=== PATIENT | female | born 1950 | race Caucasian/White ===

== ENCOUNTER 2016-06-26 10:43 | Observation (INO) | payer OTHER, MEDICAID ==
--- NOTE | 2016-06-26 10:58 | EDPHY ---
H & P Time Seen by Provider: 06/26/16 10:46 HPI/ROS: CHIEF COMPLAINT: HYPOXIA HISTORY OF PRESENT ILLNESS: Patient is a 65-year-old female who is sent to the emergency department for being hypoxic after ECT therapy. She has seen there for history of bipolar disorder. She had ECT today and received etomidate and succinylcholine for the procedure. During recovery she was remaining hypoxic around 80% on room air. This had never happened to her before. Dr. Elkins called to transfer her. He did tell me that she had a history of mild heart failure. Patient denies this and it is not listed on her records however she does take 20 mg of Lasix daily and wear compression stockings. She has not been febrile. She denies recent illness. She denies any dyspnea prior to this morning's treatment. She denies having any history of cardiac or pulmonary disease. REVIEW OF SYSTEMS: Constitutional: denies: chills, fever, recent illness, recent injury EENTM: denies: blurred vision, double vision, nose congestion Respiratory: See HPI Cardiac: denies: chest pain, irregular heart rate, lightheadedness, palpitations Gastrointestinal/Abdominal: denies: abdominal pain, diarrhea, nausea, vomiting, blood streaked stools Genitourinary: denies: dysuria, frequency, hematuria, pain Musculoskeletal: denies: joint pain, muscle pain Skin: denies: lesions, rash, jaundice, bruising Neurological: denies: headache, numbness, paresthesia, tingling, dizziness, weakness Hematologic/Lymphatic: denies: blood clots, easy bleeding, easy bruising Immunologic/allergic: denies: HIV/AIDS, transplant EXAM: GENERAL: Well-appearing, well-nourished and in no acute distress. HEAD: Atraumatic, normocephalic. EYES: Pupils equal round and reactive to light, extraocular movements intact, sclera anicteric, conjunctiva are normal. ENT: TMs normal, nares patent, oropharynx clear without exudates. Moist mucous membranes. NECK: Normal range of motion, supple without lymphadenopathy or JVD. LUNGS: Mild diffuse crackles HEART: Regular rate and rhythm without murmurs, rubs or gallops. ABDOMEN: Soft, nontender, normoactive bowel sounds. No guarding, no rebound. No masses appreciated. BACK: No CVA tenderness, no spinal tenderness, step-offs or deformities EXTREMITIES: Normal range of motion, no pitting or edema. No clubbing or cyanosis. NEUROLOGICAL: Cranial nerves II through XII grossly intact. Normal speech, normal gait. 5/5 strength, normal movement in all extremities, normal sensation PSYCH: Normal mood, normal affect. SKIN: Warm, dry, normal turgor, no visible rashes or lesions. Source: Patient, RN/MD, EMS, care home records Exam Limitations: No limitations - Personal History Tetanus Vaccine Date: Unsure but within the last 5 years - Medical/Surgical History Hx Asthma: No Hx Chronic Respiratory Disease: No Hx Diabetes: No Hx Cardiac Disease: No Hx Renal Disease: Yes Hx Cirrhosis: No Hx Alcoholism: No Hx HIV/AIDS: No Hx Splenectomy or Spleen Trauma: No Other PMH: MEDICAL- DEPRESSION, THYROID ISSUES, MIGRAINES, BIPOLAR, HTN, "low kidney function". SURGERY- LEFT LEG SURGERY - Family History Significant Family History: Hypertension - Social History Smoking Status: Never smoked Alcohol Use: Sober Drug Use: None Constitutional: Initial Vital Signs Temperature (C) 36.6 C 06/26/16 10:59 Heart Rate 58 L 06/26/16 10:59 Respiratory Rate 20 06/26/16 10:59 Blood Pressure 150/94 H 06/26/16 10:59 O2 Sat (%) 83 L 06/26/16 10:59 O2 Delivery Mode Nasal Cannula O2 (L/minute) 2 Allergies/Adverse Reactions: carbamazepine Allergy (Unknown, Verified 11/16/14 10:03) Unknown lithium Allergy (Verified 11/16/14 10:04) NSAIDS (Non-Steroidal Anti-Inflamma Allergy (Verified 06/26/16 11:03) Home Medications: Medication Instructions Recorded Acetaminophen [Tylenol ES 500 mg 1,000 mg PO BID 06/26/16 (*)] Allopurinol [Allopurinol 100 MG 100 mg PO DAILY 06/26/16 (*)] Aspirin [Aspirin 81mg (*)] 81 mg PO DAILY 06/26/16 Benztropine Mesylate [Cogentin (*)] 1 mg PO BID 06/26/16 C/E/Zn/Cu/OM3/DHA/EPA/LUT/ZEAX 1 each PO BID 06/26/16 [Preservision Areds 2 Softgel] Cholecalciferol Vit D3 [Vitamin D3 4,000 units PO DAILY 06/26/16 2000 units tab (OTC)] Docusate Sodium [Colace 100 MG (*)] 100 mg PO DAILY 06/26/16 Donepezil HCl [Aricept 5 MG (*)] 5 mg PO HS 06/26/16 Fluticasone Nasal [Flonase Nasal 1 sprays EACHNARE DAILY 06/26/16 [place] (RX)] Furosemide [Lasix 20 MG (*)] 20 mg PO DAILY 06/26/16 Gluc Oxid/l-Peroxid/Muramidase 0 ml MM DAILY 06/26/16 [Biotene Mouthwash (*)] Herbals/Supplements -Info Only 1 ea PO DAILY 06/26/16 Hydrochlorothiazide [HCTZ (*)] 12.5 mg PO DAILY 06/26/16 Levothyroxine [Synthroid 112 mcg 112 mcg PO DAILYAC 06/26/16 (*)] Loratadine [Allergy] 10 mg PO DAILY 06/26/16 OLANZapine [ZyPREXA 2.5 mg (*)] 20 mg PO HS 06/26/16 Pantoprazole Sodium [Protonix 40mg 40 mg PO DAILY 06/26/16 (*)] Selenium [Selenium 200mcg (*)] 200 mcg PO DAILY 06/26/16 Sertraline HCl [Zoloft 50mg (*)] 50 mg PO DAILY 06/26/16 Simvastatin [Zocor] 20 mg PO HS 06/26/16 Zolpidem Tartrate [Ambien 5MG (*)] 10 mg PO HS 06/26/16 amLODIPine BESYLATE [Norvasc 10 mg 10 mg PO DAILY 06/26/16 (*)] buPROPion XL [Wellbutrin Xl] 300 mg PO DAILY 06/26/16 clonazePAM [klonoPIN (*)] 1 mg PO BID 06/26/16 hydrALAZINE [Apresoline 50 mg (*)] 25 mg PO BID 06/26/16 Medical Decision Making - Diagnostics EKG Interpretation: An EKG obtained and was read and documented in trace view. Please see trace view for full reading and report. Sinus rhythm, right bundle branch block, unchanged from previous ED Course/Re-evaluation: The patient remains hypoxic to the low 80s. She does have crackles on exam but a clear x-ray. I suspect aspiration. I have started antibiotics and ordered sepsis protocol. I discussed the case with Soraya Odom who accepted for Dr. Rhodes. Differential Diagnosis: Partial list of the Differential diagnosis considered include but were not limited to; pneumonia, CHF, sepsis and although unlikely based on the history and physical exam, I also considered PE, pneumothorax, anesthesia reaction. - Data Points Laboratory Results: Laboratory Results 06/26/16 10:50 06/26/16 10:50 Medications Given: Discontinued Medications Ertapenem 1 gm/ Sodium (Chloride) 100 mls @ 200 mls/hr IV EDNOW ONE PRN Reason: Protocol Stop: 06/26/16 14:00 Last Admin: 06/26/16 15:08 Dose: 100 mls Sodium Chloride (Ns *For Sepsis Order Set Only*) 2,232 ml 30 ml/kg (2232 ml) IV EDNOW ONE Stop: 06/26/16 13:31 Last Admin: 06/26/16 15:08 Dose: 2,232 ml Departure - Departure Disposition: [facility] Inpatient Acute Clinical Impression: Aspiration pneumonia Qualifiers: Aspiration pneumonia type: unspecified Laterality: unspecified laterality Lung location: unspecified part of lung Qualified Code(s): J69.0 - Pneumonitis due to inhalation of food and vomit Condition: Fair
[2016-06-26 10:59] LABS: % IMMATURE GRANULYOCYTES 0.7 % (0.0-1.1); ABSOLUTE IMMATURE GRANULOCYTES 0.02 10^3/uL (0.00-0.10); ADD DIFF? NO; ADD MORPH? NO; ADD SCAN? NO; ATYPICAL LYMPHOCYTE FLAG 0 (0-99); FRAGMENT RBC FLAG 0 (0-99); HEMATOCRIT 39.5 % (38.0-47.0); HEMOGLOBIN 13.2 g/dL (12.6-16.3); LEFT SHIFT FLG 0 (0-99); LIPEMIA HEMOLYSIS FLAG 80 (0-99); MEAN CELL HEMOGLOBIN 30.6 pg (27.9-34.1); MEAN CELL HEMOGLOBIN CONCENTR. 33.4 g/dL (32.4-36.7); MEAN CELL VOLUME 91.4 fL (81.5-99.8); MEAN PLATELET VOLUME 9.2 fL (8.7-11.7); PLATELET CLUMPS FLAG 0 (0-99); PLATELET COUNT 257 10^3/uL (150-400); RED BLOOD CELL COUNT 4.32 10^6/uL (4.18-5.33); RED CELL DISTRIBUTION WIDTH 12.4 % (11.5-15.2)
--- NOTE | 2016-06-26 11:07 | CPEKG ---
Heart Rate: 60 RR Interval: 1000 P-R Interval: 208 QRSD Interval: 164 QT Interval: 456 QTC Interval: 456 P [place]: 40 QRS [place]: 31 T Wave [place]: 17 EKG Severity - ABNORMAL ECG - EKG Impression: SINUS RHYTHM EKG Impression: RIGHT BUNDLE BRANCH BLOCK EKG Impression: Similar to previous Electronically Signed By: Garfield Garcia 26-Jun-2016 11:13:33
[2016-06-26 11:21] LABS: INR 0.94 (0.83-1.16); PROTIME(PATIENT) 12.5 SEC (12.0-15.0)
[2016-06-26 11:22] LABS: APTT 43.3 SEC (23.0-38.0)
[2016-06-26 11:33] LABS: ANION GAP 12 mEq/L (8-16); BILIRUBIN,TOTAL 0.6 mg/dL (0.1-1.4); CALCIUM 10.9 mg/dL (8.5-10.4); CARBON DIOXIDE 31 mEq/l (22-31); CHLORIDE 96 mEq/L (97-110); CREATININE 1.9 mg/dL (0.6-1.0); GLOMERULAR FILTRATION RATE 26; GLUCOSE 100 mg/dL (70-100); POTASSIUM 3.7 mEq/L (3.5-5.2); SODIUM 139 mEq/L (134-144)
[2016-06-26 11:43] LABS: TROPONIN I 0.015 ng/mL (0-0.034)
[2016-06-26] MEDS ORDERED: NS 1,000 ML BAG *FOR SEPSIS ORDER SET ONLY IV ONE (13:30)
[2016-06-26] MEDS ORDERED: ERTAPENEM 1 GM in NS 100 ML IV ONE (13:31)
[2016-06-26] MEDS ORDERED: ONDANSETRON 4 MG/2 ML VIAL IVP PRN (14:37)
[2016-06-26] MEDS ORDERED: ACETAMINOPHEN 325 MG TAB PO PRN (14:37)
[2016-06-26] MEDS ORDERED: ONDANSETRON DISINTEGRATING 4 MG TAB PO PRN (14:37)
[2016-06-26] MEDS ORDERED: 1/2 NS 1,000 ML IV SCH (15:00)
--- NOTE | 2016-06-26 15:49 | GHP ---
[f rep st] HISTORY AND PHYSICAL DATE OF ADMISSION: 06/26/2016 CHIEF COMPLAINT: Hypoxia. HISTORY OF PRESENT ILLNESS: The patient is a 65-year-old female, who received scheduled ECT today a t [facility]. After her treatment, she was noted to be hypoxic on room air and sent to the emergency room for further evaluation. The patient has a known history of dysphagia and ceasar trejo had some subsequent aspiration during her ECT treatment. History and Physical was obtained from the patient, however, is difficult given her memory issues with her recent ECT therapy. She denies any shortness of breath, chest pain, or dyspnea. She denies any fevers, night sweats, or chills. She denies any current discomfort, headache, or other specific complaints. She states that she feel s well but is tired from her treatment. REVIEW OF SYSTEMS: Comprehensive 10-point review of systems is negative other than noted in the HPI . PAST MEDICAL HISTORY: 1. Hypertension. 2. Severe depression requiring ECT. 3. Hypothyroidism. 4. Dysphagia. 5. Renal failure. PAST SURGICAL HISTORY: The patient states she has had 1 surgery as a young woman but cannot recall what it was. FAMILY HISTORY: Reviewed and appears to be noncontributory at this time. SOCIAL HISTORY: The patient lives in [place] in an assisted living facility. She takes transportat ion with a taxi from [place] to [place] and back for her ECT treatments. She denies any tobacco or alcohol use. PHYSICAL EXAMINATION: GENERAL: The patient is alert. VITAL SIGNS: Afebrile at 36.6, pulse is 58, respiratory rate is 20, blood pressure is 130/85. She is saturating 94% on 2 L, and 83% on room ai r. HEENT: Normocephalic, atraumatic. Mucosal membranes are moist. Pupils equal, round, and react alize to light. RESPIRATORY: Lungs are decreased in the bases bilaterally. No rhonchi or wheezes no bert. CARDIOVASCULAR: Regular rate and rhythm. GASTROINTESTINAL/ABDOMEN: Bowel sounds are positive . Soft and nontender. There is no guarding or rigidity noted. NEUROLOGIC: The patient is intact. SKIN: Warm and dry without rashes or lesions. MUSCULOSKELETAL: No abnormalities identified. ALLERGIES: 1. [place]. 2. Carbamazepine. HOME MEDICATIONS: Waiting for them to be reconciled. STUDIES AND PROCEDURES: Chest x-ray that appears to be within normal limits. LABORATORY EVALUATION: White count is 3, with a creatinine of 1.9, and a calcium of 10.9. ASSESSMENT AND PLAN: Patient is a 65-year-old female, presenting to the emergency room after ECT th pavithra noted that she was: 1. Hypoxic. I suspect the patient had episode of aspiration during her ECT therapy. She does have a known history of dysphagia and has been working with Speech Therapy in the outpatient setting. S he has been treated with IV Invanz in the emergency room, and we will continue this at this time wit h further evaluation and recommendations to be made. The patient's chest x-ray is stable and within normal limits. However, I suspect that a pneumonia may blossom in the next 24-48 hours. 2. Severe depression. The patient will continue her ECT treatments as previously prescribed. 3. History of hypertension. Will reinitiate the patient's previously prescribed antihypertensive m edications when they have been reconciled. 4. History of hypothyroidism. Again, we will reinitiate the patient's medications. 5. Chronic renal insufficiency. The patient tells me this is secondary to a lengthy use of lithium . I suspect her creatinine of 1.9 is close to her baseline renal function. 6. Hypercalcemia. Calcium is elevated at 10.9. It is likely she has some mild dehydration. We wi ll hydrate her and recheck her laboratory values in the morning. DISPOSITION: I have admitted the patient under observation status. She may respond to antibiotic t herapy, and her acute hypoxemia may resolve in the next 24-48 hours. Further action will be taken a s needed during the patient's hospitalization. /[id number]/MODL
[2016-06-26 19:21] VITALS: RESP 18
[2016-06-26] MEDS: ACETAMINOPHEN 500 MG TAB PO SCH (20:22)
[2016-06-26] MEDS: clonazePAM 1 MG TAB PO SCH (20:23)
[2016-06-26] MEDS: BENZTROPINE MESYLATE 1 MG TAB PO SCH (20:23)
[2016-06-26] MEDS: PRESERVISION AREDS2 FORMULA EYE VIT 1 EACH PO SCH (20:23)
[2016-06-26] MEDS: hydrALAZINE 25 MG TAB PO SCH (20:24)
[2016-06-26] MEDS: HEPARIN 5,000 UNIT/0.5 ML SYR SC SCH (20:25)
[2016-06-26] MEDS ORDERED: ATORVASTATIN CALCIUM 10 MG TAB PO SCH (21:00)
[2016-06-26] MEDS ORDERED: DONEPEZIL HCL 5 MG TAB PO SCH (21:00)
[2016-06-26] MEDS ORDERED: OLANZapine DISINTEGR 10 MG TAB PO SCH (21:00)
[2016-06-27] MEDS: HEPARIN 5,000 UNIT/0.5 ML SYR SC SCH (05:05)
[2016-06-27 05:08] LABS: ANION GAP 8 mEq/L (8-16); CALCIUM 9.8 mg/dL (8.5-10.4); CARBON DIOXIDE 30 mEq/l (22-31); CHLORIDE 103 mEq/L (97-110); GLOMERULAR FILTRATION RATE 25; GLUCOSE 86 mg/dL (70-100); POTASSIUM 4.2 mEq/L (3.5-5.2); SODIUM 141 mEq/L (134-144)
[2016-06-27] MEDS ORDERED: LEVOTHYROXINE 112 MCG TAB PO SCH (07:30)
[2016-06-27] MEDS ORDERED: FLUTICASONE NASAL 120 SPRAYS/16 GM MDI EACHNARE SCH (09:00)
[2016-06-27] MEDS ORDERED: HYDROCHLOROTHIAZIDE 12.5 MG CAP PO SCH (09:00)
[2016-06-27] MEDS ORDERED: CHOLECALCIFEROL VIT D3 2,000 UNITS TAB/CAP PO SCH (09:00)
[2016-06-27] MEDS ORDERED: CETIRIZINE 10 MG TAB PO SCH (09:00)
[2016-06-27] MEDS ORDERED: SERTRALINE HCL 50 MG TAB PO SCH (09:00)
[2016-06-27] MEDS ORDERED: Herbals/Supplements -Info Only PO SCH (09:00)
[2016-06-27] MEDS ORDERED: buPROPion XL 150 MG TAB PO SCH (09:00)
[2016-06-27] MEDS ORDERED: ALLOPURINOL 100 MG TAB PO SCH (09:00)
[2016-06-27] MEDS ORDERED: BIOTENE DRY MOUTH MOUTHWASH 237 ML BTL MM SCH (09:00)
[2016-06-27] MEDS ORDERED: ERTAPENEM 1 GM in NS 100 ML IV SCH (09:00)
[2016-06-27] MEDS ORDERED: ASPIRIN 81 MG CHEWABLE TAB PO SCH (09:00)
[2016-06-27] MEDS ORDERED: SELENIUM 0.2 MG TAB PO SCH (09:00)
[2016-06-27] MEDS ORDERED: PANTOPRAZOLE SODIUM 40 MG TAB PO SCH (09:00)
[2016-06-27] MEDS ORDERED: FUROSEMIDE 20 MG TAB PO SCH (09:00)
[2016-06-27] MEDS ORDERED: DOCUSATE SODIUM 100 MG CAP PO SCH (09:00)
[2016-06-27] MEDS: PRESERVISION AREDS2 FORMULA EYE VIT 1 EACH PO SCH (10:00)
[2016-06-27] MEDS: hydrALAZINE 25 MG TAB PO SCH (10:00)
[2016-06-27] MEDS: BENZTROPINE MESYLATE 1 MG TAB PO SCH (10:01)
[2016-06-27] MEDS: ACETAMINOPHEN 500 MG TAB PO SCH (10:02)
[2016-06-27] MEDS: clonazePAM 1 MG TAB PO SCH (10:02)
--- NOTE | 2016-06-27 10:21 | PDDCSUM ---
Discharge Summary Discharge Summary: DISCHARGE SUMMARY FOLLOW-UP ITEMS: Outpatient swallow eval DATE OF ADMISSION: 06/26/2016 DATE OF DISCHARGE: 06/27/2016 DISCHARGE DIAGNOSES: 1. Acute hypoxia 2. Suspected aspiration 3. Major depressive disorder 4. Chronic hypertension 5. Chronic kidney disease stage 3 CONSULTATIONS: None PROCEDURES / IMAGING: None CHIEF COMPLAINT: Acute hypoxia and possible aspiration with ECT therapy SUBJECTIVE: Patient is feeling well at time of discharge, she is comfortable breathing on room air PHYSICAL EXAM ON DISCHARGE: Systolic blood pressure is 120, heart rate 70, afebrile overnight, 93% on room air, good inspiratory and expiratory air movement bilaterally, no lower extremity edema, cranial nerves 2-12 are intact and tested, motor strength 5/5 bilateral upper and lower extremities LABS ON DISCHARGE: Creatinine 2.0, potassium 4.2, D-dimer negative HOSPITAL COURSE BY PROBLEM: 1. Acute hypoxia. Patient was brought to [facility] for acute hypoxia following her ECT therapy and possible aspiration. The patient's SpO2 was 93% on room air and she was placed on supplemental oxygen. She had evaluation including chest x-ray, negative D-dimer, no evidence of overt pneumonia. She was weaned to room air and was satting 93% on room air at time of discharge. Patient does not require supplemental oxygen at time of discharge and does not require further inpatient evaluation. 2. Suspected aspiration. Is suspected that the patient experienced acute aspiration pneumonitis and no overt pneumonia. This occurred in the setting of ECT therapy. Patient was seen by speech language therapy and she was cleared for regular diet. She should follow up with speech language therapy in the outpatient setting and she does report that she drools regularly and this does not appear to be secondary to an overt cranial nerve problem. 3. Major depressive disorder. The patient was brought to [place] for ECT therapy which took place on 06/26/2016. She should follow up with her regular mental health providers and is safe for ECT therapy in the future. 4. Stage chronic kidney disease stage 3. Patient's renal function was unchanged during this hospitalization. 5. Chronic hypertension. Patient was restarted on all her home antihypertensive medications. DISCHARGE MEDICATIONS: Please see official discharge medication reconciliation sheet in chart , no changes were made. DISCHARGE INSTRUCTIONS: Patient should follow up with her primary care provider Dr. Moseley to discuss her drooling issue.
[2016-06-27 11:12] VITALS: BP 139/90; PULSE 69; TEMP 98.8; O2SAT 95
== END 2016-06-27 12:54 | disposition home or self-care (01) ==
LOC: EDUNIT# → F3E 17:55
PROVIDERS: ADMIT Internal Medicine; ATTEND Internal Medicine
DX: R09.02 Hypoxemia (principal); F32.9 Major depressive disorder, single episode, unspecified; R13.10 Dysphagia, unspecified; N18.3 Chronic kidney disease, stage 3 (moderate); I12.9 Hypertensive chronic kidney disease with stage 1 through stage 4 chronic kidney disease, or unspecified chronic kidney disease; E03.9 Hypothyroidism, unspecified; E83.52 Hypercalcemia; Z98.890 Other specified postprocedural states
CPT/HCPCS: 71020; 92610; 93005; G0378; G8996; G8997; G8998; J1335

== ENCOUNTER 2017-01-17 09:52 | Emergency (ER) | payer OTHER, MEDICAID ==
--- NOTE | 2017-01-17 10:20 | CPEKG ---
Heart Rate: 62 RR Interval: 968 P-R Interval: 200 QRSD Interval: 172 QT Interval: 456 QTC Interval: 463 P [place]: 25 QRS [place]: -55 T Wave [place]: -12 EKG Severity - ABNORMAL ECG - EKG Impression: SINUS RHYTHM EKG Impression: RIGHT BUNDLE BRANCH BLOCK Electronically Signed By: Derek Huerta 17-Jan-2017 10:23:54
--- NOTE | 2017-01-17 10:23 | EDPHY ---
H & P Stated Complaint: low Pox at ECT Time Seen by Provider: 01/17/17 10:22 HPI/ROS: CHIEF COMPLAINT: Referred to ED for hypoxia HISTORY OF PRESENT ILLNESS: The patient is referred to the emergency department from the ECT department where she was noted to have a room air oxygen saturation of 84%. The patient has no complaints of acute chest pain, shortness of breath, asymmetric calf pain or swelling. She has a 1 year history of a chronic cough and hoarseness. She was evaluated in the emergency department in June of this year for nearly identical symptoms. At that point time she was felt to have dyspnea secondary to possible mild chronic aspiration. The patient tells me she does wear oxygen at night. She does not use any bronchodilator therapy. The patient denies any fever, cough or congestion. REVIEW OF SYSTEMS: A comprehensive 10 point review of systems is otherwise negative aside from elements mentioned in the history of present illness. Source: Patient Exam Limitations: No limitations - Personal History Current Tetanus/Diphtheria Vaccine: Yes Current Tetanus Diphtheria and Acellular Pertussis (TDAP): Yes Tetanus Vaccine Date: Unsure but within the last 5 years - Medical/Surgical History Hx Asthma: No Hx Chronic Respiratory Disease: No Hx Diabetes: No Hx Cardiac Disease: No Hx Renal Disease: Yes Hx Cirrhosis: No Hx Alcoholism: No Hx HIV/AIDS: No Hx Splenectomy or Spleen Trauma: No Other PMH: MEDICAL- DEPRESSION, THYROID ISSUES, MIGRAINES, BIPOLAR, HTN, "low kidney function". SURGERY- LEFT LEG SURGERY - Social History Smoking Status: Never smoked - Physical Exam Exam: General Appearance: Elderly female, no acute distress, slightly obese Eyes: Pupils equal and round no pallor or injection ENT, Mouth: Mucous membranes moist Respiratory: There are no retractions, lungs are clear to auscultation Cardiovascular: Regular rate and rhythm Gastrointestinal: Abdomen is soft and nontender, no masses, bowel sounds normal Neurological: A&O, normal motor function, normal sensory exam, normal cranial nerves Skin: Warm and dry, no rashes Musculoskeletal: Neck is supple nontender Extremities: symmetrical, full range of motion Constitutional: Initial Vital Signs Temperature (C) 36.7 C 01/17/17 09:57 Heart Rate 68 01/17/17 09:57 Respiratory Rate 20 01/17/17 09:57 Blood Pressure 148/79 H 01/17/17 09:57 O2 Sat (%) 89 L 01/17/17 09:57 O2 Delivery Mode Room Air O2 (L/minute) 2 Allergies/Adverse Reactions: carbamazepine Allergy (Unknown, Verified 11/16/14 10:03) Unknown lithium Allergy (Verified 11/16/14 10:04) NSAIDS (Non-Steroidal Anti-Inflamma Allergy (Verified 06/26/16 11:03) Home Medications: Medication Instructions Recorded Acetaminophen [Tylenol ES 500 mg 1,000 mg PO BID 06/26/16 (*)] Allopurinol [Allopurinol 100 MG 100 mg PO DAILY 06/26/16 (*)] Aspirin [Aspirin 81mg (*)] 81 mg PO DAILY 06/26/16 Benztropine Mesylate [Cogentin (*)] 1 mg PO BID 06/26/16 C/E/Zn/Cu/OM3/DHA/EPA/LUT/ZEAX 1 each PO BID 06/26/16 [Preservision Areds 2 Softgel] Cholecalciferol Vit D3 [Vitamin D3 4,000 units PO DAILY 06/26/16 2000 units tab (OTC)] Docusate Sodium [Colace 100 MG (*)] 100 mg PO DAILY 06/26/16 Donepezil HCl [Aricept 5 MG (*)] 5 mg PO HS 06/26/16 Fluticasone Nasal [Flonase Nasal 1 sprays EACHNARE DAILY 06/26/16 [place]] Furosemide [Lasix 20 MG (*)] 20 mg PO DAILY 06/26/16 Gluc Oxid/l-Peroxid/Muramidase 0 ml MM DAILY 06/26/16 [Biotene Mouthwash (*)] Herbals/Supplements -Info Only 1 ea PO DAILY 06/26/16 Hydrochlorothiazide [HCTZ (*)] 12.5 mg PO DAILY 06/26/16 Levothyroxine [Synthroid 112 mcg 112 mcg PO DAILYAC 06/26/16 (*)] Loratadine [Allergy] 10 mg PO DAILY 06/26/16 OLANZapine [ZyPREXA 2.5 mg (*)] 20 mg PO HS 06/26/16 Pantoprazole Sodium [Protonix 40mg 40 mg PO DAILY 06/26/16 (*)] Selenium [Selenium 200mcg (*)] 200 mcg PO DAILY 06/26/16 Sertraline HCl [Zoloft 50mg (*)] 50 mg PO DAILY 06/26/16 Simvastatin [Zocor] 20 mg PO HS 06/26/16 Zolpidem Tartrate [Ambien 5MG (*)] 10 mg PO HS 06/26/16 amLODIPine BESYLATE [Norvasc 10 mg 10 mg PO DAILY 06/26/16 (*)] buPROPion XL [Wellbutrin 150mg XL] 300 mg PO DAILY 06/26/16 clonazePAM [klonoPIN (*)] 1 mg PO BID 06/26/16 hydrALAZINE [Apresoline 50 mg (*)] 25 mg PO BID 06/26/16 Medical Decision Making - Diagnostics EKG Interpretation: EKG: Complete interpretation has been separately recorded in the TraceTMAT archive. Summary impression: Sinus rhythm, right bundle branch block Imaging Results: Imaging Impressions Chest X-Ray 01/17/17 10:03 Impression: 1. Nothing acute identified. 2. Cardiomegaly without failure. 3. COPD. 4. This patient might benefit from a DEXA scan. ED Course/Re-evaluation: The patient presents to the ED for evaluation of chronic intermittent hypoxemia. The patient's room-air oxygen saturation is 84% on room air. Her EKG demonstrates no evidence of arrhythmia. Her chest x-ray demonstrates no evidence of heart failure or pneumonia. The patient's troponin is normal in her BNP level is normal. The patient's hypoxemia corrects on 2 L a minute nasal cannula oxygen. At this point time I am fairly suspicious that the patient is developing chronic underlying lung disease. The patient's laboratory studies do demonstrate chronic renal insufficiency with a baseline creatinine of 1.9. The remainder of her metabolic panel was within normal limits. The patient's troponin and BNP are also normal. I have spoken with her primary care provider who feels that she can manage this condition at the patient's alf. The patient will begin chronic nasal oxygen at 2 liters/minute and also began albuterol MDI inhalers. The patient will be discharged from the emergency department at this point with instructions to return to the emergency department for any markedly worsening symptoms, subjective chest pain, subjective dyspnea or other acute concerns. Differential Diagnosis: Differential diagnosis considered includes congestive heart failure, pneumonia, pneumothorax, pneumonitis, emphysema, chronic bronchitis - Data Points Laboratory Results: Laboratory Results 01/17/17 10:23 01/17/17 10:23 01/17/17 01/17/17 10:23 10:23 WBC 4.06 10^3/uL 10^3/uL (3.80-9.50) RBC 4.01 10^6/uL L 10^6/uL (4.18-5.33) Hgb 12.7 g/dL g/dL (12.6-16.3) Hct 37.2 % L % (38.0-47.0) MCV 92.8 fL fL (81.5-99.8) MCH 31.7 pg pg (27.9-34.1) MCHC 34.1 g/dL g/dL (32.4-36.7) RDW 12.5 % % (11.5-15.2) Plt Count 256 10^3/uL 10^3/uL (150-400) MPV 8.7 fL fL (8.7-11.7) Neut % (Auto) 68.7 % % (39.3-74.2) Lymph % (Auto) 17.5 % % (15.0-45.0) [place] % (Auto) 9.6 % % (4.5-13.0) Eos % (Auto) 2.0 % % (0.6-7.6) Baso % (Auto) 1.0 % % (0.3-1.7) Nucleat RBC Rel Count 0.0 % % (0.0-0.2) Absolute Neuts (auto) 2.79 10^3/uL 10^3/uL (1.70-6.50) Absolute Lymphs (auto) 0.71 10^3/uL L 10^3/uL (1.00-3.00) Absolute Monos (auto) 0.39 10^3/uL 10^3/uL (0.30-0.80) Absolute Eos (auto) 0.08 10^3/uL 10^3/uL (0.03-0.40) Absolute Basos (auto) 0.04 10^3/uL 10^3/uL (0.02-0.10) Absolute Nucleated RBC 0.00 10^3/uL 10^3/uL (0-0.01) Immature Gran % 1.2 % H % (0.0-1.1) Immature Gran # 0.05 10^3/uL 10^3/uL (0.00-0.10) Sodium 134 mEq/L mEq/L (134-144) Potassium 3.2 mEq/L L mEq/L (3.5-5.2) Chloride 89 mEq/L L mEq/L (97-110) Carbon Dioxide 29 mEq/l mEq/l (22-31) Anion Gap 16 mEq/L mEq/L (8-16) BUN 37 mg/dL H mg/dL (7-23) Creatinine 1.9 mg/dL H mg/dL (0.6-1.0) Estimated GFR 26 Glucose 97 mg/dL mg/dL (70-100) Calcium 10.6 mg/dL H mg/dL (8.5-10.4) Troponin I 0.013 ng/mL ng/mL (0.000-0.034) NT-Pro-B Natriuret Pep 370 pg/mL H pg/mL (0-125) Departure - Departure Disposition: Home, Routine, Self-Care Clinical Impression: Hypoxemia, Bipolar 1 disorder, depressed, severe Condition: Good Instructions: Using Oxygen at Home (ED) Additional Instructions: 1. I recommend using nasal cannula oxygen 2 liters/minute 24 hours a day. 2. Please have your regular physician attempt a trial of albuterol to see if this improves your oxygen level. 3. Please return to the emergency department for severe chest pain, difficulty breathing or other concerns. Referrals: RUTH,NOT SURE [Other] - As per Instructions
[2017-01-17 10:33] LABS: % IMMATURE GRANULYOCYTES 1.2 % (0.0-1.1); ABSOLUTE IMMATURE GRANULOCYTES 0.05 10^3/uL (0.00-0.10); ADD DIFF? NO; ADD MORPH? NO; ADD SCAN? NO; ATYPICAL LYMPHOCYTE FLAG 10 (0-99); FRAGMENT RBC FLAG 0 (0-99); HEMATOCRIT 37.2 % (38.0-47.0); HEMOGLOBIN 12.7 g/dL (12.6-16.3); LEFT SHIFT FLG 10 (0-99); LIPEMIA HEMOLYSIS FLAG 90 (0-99); MEAN CELL HEMOGLOBIN 31.7 pg (27.9-34.1); MEAN CELL HEMOGLOBIN CONCENTR. 34.1 g/dL (32.4-36.7); MEAN CELL VOLUME 92.8 fL (81.5-99.8); MEAN PLATELET VOLUME 8.7 fL (8.7-11.7); PLATELET CLUMPS FLAG 10 (0-99); PLATELET COUNT 256 10^3/uL (150-400); RED BLOOD CELL COUNT 4.01 10^6/uL (4.18-5.33); RED CELL DISTRIBUTION WIDTH 12.5 % (11.5-15.2)
[2017-01-17 11:00] LABS: TROPONIN I 0.013 ng/mL (0.000-0.034)
[2017-01-17 11:51] LABS: ANION GAP 16 mEq/L (8-16); CALCIUM 10.6 mg/dL (8.5-10.4); CARBON DIOXIDE 29 mEq/l (22-31); CHLORIDE 89 mEq/L (97-110); CREATININE 1.9 mg/dL (0.6-1.0); GLOMERULAR FILTRATION RATE 26; GLUCOSE 97 mg/dL (70-100); POTASSIUM 3.2 mEq/L (3.5-5.2); SODIUM 134 mEq/L (134-144)
[2017-01-17 15:04] VITALS: RESP 16
[2017-01-17 15:05] VITALS: BP 132/74; PULSE 72; TEMP 97.9; O2SAT 96
== END 2017-01-17 15:05 | disposition home or self-care (01) ==
LOC: EDUNIT#
DX: R09.02 Hypoxemia (principal); F31.9 Bipolar disorder, unspecified; F31.4 Bipolar disorder, current episode depressed, severe, without psychotic features; Z79.82 Long term (current) use of aspirin

== ENCOUNTER 2017-03-10 16:04 | Emergency (ER) | payer OTHER, MEDICAID ==
--- NOTE | 2017-03-10 16:12 | EDPHY ---
H & P HPI/ROS: CHIEF COMPLAINT: HISTORY OF PRESENT ILLNESS: [Location, Duration, Severity, Quality, Context, Timing Modifying Factors, Associated S&S] REVIEW OF SYSTEMS: Constitutional: No fever, no chills Eyes: No visual changes ENT: No sore throat Respiratory: No cough, no shortness of breath Cardiac: No chest pain Gastrointestinal: No nausea, no vomiting, no abdominal pain Genitourinary: No hematuria, no dysuria Musculoskeletal: No leg pain or swelling Skin: No rash Neurological: No headache, no numbness, no weakness Psychiatric: No depression Adult Physical General Appearance: Alert, no distress Eyes: Pupils equal and round, no conjunctival pallor or injection ENT, Mouth: Mucous membranes moist Neck: Normal inspection Respiratory: Lungs are clear to auscultation Cardiovascular: Regular rate and rhythm Gastrointestinal: Abdomen is soft and non- tender Neurological: A&O, nonfocal, normal gait Skin: Warm and dry, no rash Extremities: Nontender, no pedal edema Psychiatric: Mood and affect normal Smoking Status: Never smoked Allergies/Adverse Reactions: carbamazepine Allergy (Unknown, Verified 11/16/14 10:03) Unknown lithium Allergy (Verified 11/16/14 10:04) NSAIDS (Non-Steroidal Anti-Inflamma Allergy (Verified 06/26/16 11:03) Home Medications: Medication Instructions Recorded Acetaminophen [Tylenol ES 500 mg 1,000 mg PO BID 06/26/16 (*)] Allopurinol [Allopurinol 100 MG 100 mg PO DAILY 06/26/16 (*)] Aspirin [Aspirin 81mg (*)] 81 mg PO DAILY 06/26/16 Benztropine Mesylate [Cogentin (*)] 1 mg PO BID 06/26/16 C/E/Zn/Cu/OM3/DHA/EPA/LUT/ZEAX 1 each PO BID 06/26/16 [Preservision Areds 2 Softgel] Cholecalciferol Vit D3 [Vitamin D3 4,000 units PO DAILY 06/26/16 2000 units tab (OTC)] Docusate Sodium [Colace 100 MG (*)] 100 mg PO DAILY 06/26/16 Donepezil HCl [Aricept 5 MG (*)] 5 mg PO HS 06/26/16 Fluticasone Nasal [Flonase Nasal 1 sprays EACHNARE DAILY 06/26/16 [place]] Furosemide [Lasix 20 MG (*)] 20 mg PO DAILY 06/26/16 Gluc Oxid/l-Peroxid/Muramidase 0 ml MM DAILY 06/26/16 [Biotene Mouthwash (*)] Herbals/Supplements -Info Only 1 ea PO DAILY 06/26/16 Hydrochlorothiazide [HCTZ (*)] 12.5 mg PO DAILY 06/26/16 Levothyroxine [Synthroid 112 mcg 112 mcg PO DAILYAC 06/26/16 (*)] Loratadine [Allergy] 10 mg PO DAILY 06/26/16 OLANZapine [ZyPREXA 2.5 mg (*)] 20 mg PO HS 06/26/16 Pantoprazole Sodium [Protonix 40mg 40 mg PO DAILY 06/26/16 (*)] Selenium [Selenium 200mcg (*)] 200 mcg PO DAILY 06/26/16 Sertraline HCl [Zoloft 50mg (*)] 50 mg PO DAILY 06/26/16 Simvastatin [Zocor] 20 mg PO HS 06/26/16 Zolpidem Tartrate [Ambien 5MG (*)] 10 mg PO HS 06/26/16 amLODIPine BESYLATE [Norvasc 10 mg 10 mg PO DAILY 06/26/16 (*)] buPROPion XL [Wellbutrin 150mg XL] 300 mg PO DAILY 06/26/16 clonazePAM [klonoPIN (*)] 1 mg PO BID 06/26/16 hydrALAZINE [Apresoline 50 mg (*)] 25 mg PO BID 06/26/16 Departure - Departure Referrals: Patient,NotPresent [Primary Care Provider] - As per Instructions Report Scribed for: Sarah Montiel Report Scribed by: Jessa Cortez Date of Report: 03/10/17 Time of Report: 16:12 Physician Review and Approval Statement: 03/10/17 16:12 Portions of this note were transcribed by a director medical writing. I personally performed a history, physical exam, medical decision making, and confirmed accuracy of information the transcribed note.
--- NOTE | 2017-03-10 16:14 | EDPHY ---
H & P HPI/ROS: CHIEF COMPLAINT: Hypoxia LIMITATIONS: Memory incomplete due to recent ECT, speech is slow HISTORY OF PRESENT ILLNESS: The patient is a 66-year-old female with a history of hypertension and depression, who presents from ECT with hypoxia. She has a history of hypoxia of unclear etiology and uses 2 L by nasal cannula at night. She had been using oxygen during the day as well but that was discontinued recently due to normal O2 levels during the day. Today she received ECT. After ECT, her oxygen saturation ranged from 50% on room air to 100% on room air. She remained asymptomatic throughout her observation. She was sent here for further evaluation. She was admitted in June 2016 for hypoxia, thought to have aspiration pneumonia. On discharge her oxygen saturation was 93% on room air. She denies any shortness of breath, cough, fever, pedal edema, chest pain , or any other associated symptoms. REVIEW OF SYSTEMS: Constitutional: No fever, no chills Eyes: No visual changes ENT: No sore throat Respiratory: Chronic cough, no shortness of breath Cardiac: No chest pain Gastrointestinal: No nausea, no vomiting, no abdominal pain Genitourinary: No hematuria, no dysuria Musculoskeletal: No leg pain or swelling Skin: No rash Neurological: No headache, no numbness, no weakness Psychiatric: Depression with ECT treatment Past Medical/Surgical History: 1. Depression with ECT treatment 2. Hypertension 3. Hypoxia 4. Migraines 5. Bipolar 6. Thyroid issues Past medical records reviewed including ED visit 01/27/17 for similar symptoms Social History: Lives in [place], lives in assisted living, non-smoker. Smoking Status: Never smoked Physical Exam: General Appearance: drowsy, pleasant Eyes: Pupils equal and round, no conjunctival pallor or injection ENT, Mouth: Mucous membranes moist Neck: Normal inspection Respiratory: Normal respiratory rate, Lungs are clear to auscultation Cardiovascular: Regular rate and rhythm Gastrointestinal: Abdomen is soft and non- tender Neurological: A&O, nonfocal exam Skin: Warm and dry, no rash Extremities: Nontender, no pedal edema Psychiatric: Flat affect Constitutional: Initial Vital Signs Temperature (C) 37.0 C 03/10/17 16:13 Heart Rate 59 L 03/10/17 16:13 Respiratory Rate 16 03/10/17 16:13 Blood Pressure 150/89 H 03/10/17 16:13 O2 Sat (%) 82 L 03/10/17 16:13 O2 Delivery Mode Room Air O2 (L/minute) 5 Allergies/Adverse Reactions: carbamazepine Allergy (Unknown, Verified 11/16/14 10:03) Unknown lithium Allergy (Verified 11/16/14 10:04) NSAIDS (Non-Steroidal Anti-Inflamma Allergy (Verified 06/26/16 11:03) Home Medications: Medication Instructions Recorded Acetaminophen [Tylenol ES 500 mg 1,000 mg PO BID 06/26/16 (*)] Allopurinol [Allopurinol 100 MG 100 mg PO DAILY 06/26/16 (*)] Aspirin [Aspirin 81mg (*)] 81 mg PO DAILY 06/26/16 Benztropine Mesylate [Cogentin (*)] 1 mg PO BID 06/26/16 C/E/Zn/Cu/OM3/DHA/EPA/LUT/ZEAX 1 each PO BID 06/26/16 [Preservision Areds 2 Softgel] Cholecalciferol Vit D3 [Vitamin D3 4,000 units PO DAILY 06/26/16 2000 units tab (OTC)] Docusate Sodium [Colace 100 MG (*)] 100 mg PO DAILY 06/26/16 Donepezil HCl [Aricept 5 MG (*)] 5 mg PO HS 06/26/16 Fluticasone Nasal [Flonase Nasal 1 sprays EACHNARE DAILY 06/26/16 [place]] Furosemide [Lasix 20 MG (*)] 20 mg PO DAILY 06/26/16 Gluc Oxid/l-Peroxid/Muramidase 0 ml MM DAILY 06/26/16 [Biotene Mouthwash (*)] Herbals/Supplements -Info Only 1 ea PO DAILY 06/26/16 Hydrochlorothiazide [HCTZ (*)] 12.5 mg PO DAILY 06/26/16 Levothyroxine [Synthroid 112 mcg 112 mcg PO DAILYAC 06/26/16 (*)] Loratadine [Allergy] 10 mg PO DAILY 06/26/16 OLANZapine [ZyPREXA 2.5 mg (*)] 20 mg PO HS 06/26/16 Pantoprazole Sodium [Protonix 40mg 40 mg PO DAILY 06/26/16 (*)] Selenium [Selenium 200mcg (*)] 200 mcg PO DAILY 06/26/16 Sertraline HCl [Zoloft 50mg (*)] 50 mg PO DAILY 06/26/16 Simvastatin [Zocor] 20 mg PO HS 06/26/16 Zolpidem Tartrate [Ambien 5MG (*)] 10 mg PO HS 06/26/16 amLODIPine BESYLATE [Norvasc 10 mg 10 mg PO DAILY 06/26/16 (*)] buPROPion XL [Wellbutrin 150mg XL] 300 mg PO DAILY 06/26/16 clonazePAM [klonoPIN (*)] 1 mg PO BID 06/26/16 hydrALAZINE [Apresoline 50 mg (*)] 25 mg PO BID 06/26/16 Medical Decision Making - Diagnostics EKG Interpretation: EKG interpreted by me reveals normal sinus rate rhythm, rate 59, right bundle branch block. No change compared to prior EKG dated 01/17/2017. Imaging Results: Imaging Impressions Chest X-Ray 03/10/17 16:28 Impression: 1. Worsening airways disease and bibasilar atelectasis. 2. Cardiomegaly. No failure or effusion. ED Course/Re-evaluation: The patient is a 66 y/o female complaining of hypoxia. She has a history of hypertension, depression and bipolar disorder for which she receives ECT. After her ECT today she became hypoxic in recovery. This has happened before and the etiology remains unclear. She is asymptomatic and denies any cough, shortness of breath, pedal edema, or other associated symptoms. When she has a good wave form, her oxygen saturation is steady at 90%. Serum potassium 2.7. Potassium chloride 40 mEq given. Oxygen saturation 100% on 2 L by nasal cannula while the patient is asleep. Evaluation in the emergency department is unremarkable, including EKG, chest x-ray and labs. There is no evidence of pneumonia, PTX, ACS or pulmonary embolism. D-dimer is normal and I do not suspect acute pulmonary embolism in this patient. She ambulated to the bathroom and was not short of breath. Likely hypoxia secondary to procedural sedation. I feel that she is safe and stable for discharge back to her [facility]. She will resume oxygen by nasal cannula at 2 L around the clock. Differential Diagnosis: Differential diagnosis includes though it is not limited to pneumonia, pneumothorax, pulmonary embolism, aortic dissection, pericarditis, acute coronary syndrome. - Data Points Laboratory Results: Laboratory Results 03/10/17 16:18 03/10/17 16:18 03/10/17 03/10/17 03/10/17 16:18 16:18 16:18 WBC 4.65 10^3/uL 10^3/uL (3.80-9.50) RBC 4.13 10^6/uL L 10^6/uL (4.18-5.33) Hgb 13.2 g/dL g/dL (12.6-16.3) Hct 38.2 % % (38.0-47.0) MCV 92.5 fL fL (81.5-99.8) MCH 32.0 pg pg (27.9-34.1) MCHC 34.6 g/dL g/dL (32.4-36.7) RDW 12.5 % % (11.5-15.2) Plt Count 241 10^3/uL 10^3/uL (150-400) MPV 8.8 fL fL (8.7-11.7) Neut % (Auto) 73.6 % % (39.3-74.2) Lymph % (Auto) 13.1 % L % (15.0-45.0) [place] % (Auto) 9.9 % % (4.5-13.0) Eos % (Auto) 1.5 % % (0.6-7.6) Baso % (Auto) 0.6 % % (0.3-1.7) Nucleat RBC Rel Count 0.0 % % (0.0-0.2) Absolute Neuts (auto) 3.42 10^3/uL 10^3/uL (1.70-6.50) Absolute Lymphs (auto) 0.61 10^3/uL L 10^3/uL (1.00-3.00) Absolute Monos (auto) 0.46 10^3/uL 10^3/uL (0.30-0.80) Absolute Eos (auto) 0.07 10^3/uL 10^3/uL (0.03-0.40) Absolute Basos (auto) 0.03 10^3/uL 10^3/uL (0.02-0.10) Absolute Nucleated RBC 0.00 10^3/uL 10^3/uL (0-0.01) Immature Gran % 1.3 % H % (0.0-1.1) Immature Gran # 0.06 10^3/uL 10^3/uL (0.00-0.10) D-Dimer < 0.27 ug/mLFEU ug/mLFEU (0.00-0.50) Sodium 131 mEq/L L mEq/L (134-144) Potassium 2.7 mEq/L L* mEq/L (3.5-5.2) Chloride 85 mEq/L L mEq/L (97-110) Carbon Dioxide 36 mEq/l H mEq/l (22-31) Anion Gap 10 mEq/L mEq/L (8-16) BUN 32 mg/dL H mg/dL (7-23) Creatinine 2.0 mg/dL H mg/dL (0.6-1.0) Estimated GFR 25 Glucose 100 mg/dL mg/dL (70-100) Calcium 10.7 mg/dL H mg/dL (8.5-10.4) Phosphorus 3.3 mg/dL mg/dL (2.5-4.5) NT-Pro-B Natriuret Pep 380 pg/mL H pg/mL (0-125) Specimen Hemolysis Medications Given: Discontinued Medications Potassium Chloride (Potassium Chloride Oral Liquid) 40 meq PO EDNOW ONE Stop: 03/10/17 17:07 Last Admin: 03/10/17 17:40 Dose: 40 meq Departure - Departure Disposition: Home, Routine, Self-Care Clinical Impression: Hypoxia after ECT Condition: Good Instructions: Hypoxia (ED) Additional Instructions: Stay on oxygen 2 L by nasal cannula around the clock. Return for feeling short of breath, chest pain, cough, any concerns. Referrals: JESUS MIRANDA [Other] - As per Instructions Report Scribed for: Sarah Montiel Report Scribed by: Jessa Cortez Date of Report: 03/10/17 Time of Report: 16:33 Physician Review and Approval Statement: 03/10/17 16:33 Portions of this note were transcribed by a dental assistant medical assistant. I personally performed a history, physical exam, medical decision making, and confirmed accuracy of information the transcribed note.
[2017-03-10 16:33] LABS: PLATELET COUNT 241 10^3/uL (150-400)
[2017-03-10] MEDS ORDERED: POTASSIUM CL 20 MEQ/15 ML UDCUP PO ONE (17:06)
--- NOTE | 2017-03-10 17:18 | CPEKG ---
Heart Rate: 59 RR Interval: 1017 P-R Interval: 208 QRSD Interval: 178 QT Interval: 484 QTC Interval: 480 P [place]: 23 QRS [place]: -51 T Wave [place]: -6 EKG Severity - ABNORMAL ECG - EKG Impression: SINUS RHYTHM EKG Impression: RIGHT BUNDLE BRANCH BLOCK Electronically Signed By: Sarah Montiel 10-Mar-2017 20:43:09
--- NOTE | 2017-03-10 17:18 | CPEKG ---
Heart Rate: 59 RR Interval: 1017 P-R Interval: 208 QRSD Interval: 178 QT Interval: 484 QTC Interval: 480 P [place]: 23 QRS [place]: -51 T Wave [place]: -6 EKG Severity - ABNORMAL ECG - EKG Impression: SINUS RHYTHM EKG Impression: RIGHT BUNDLE BRANCH BLOCK Electronically Signed By: Sarah Montiel 10-Mar-2017 20:43:09
[2017-03-10 18:02] VITALS: BP 129/78; RESP 18; TEMP 98.4
[2017-03-10 19:36] VITALS: PULSE 74; O2SAT 91
== END 2017-03-10 19:38 | disposition home or self-care (01) ==
LOC: EDUNIT#
DX: R09.02 Hypoxemia (principal); I10 Essential (primary) hypertension; Z79.82 Long term (current) use of aspirin